=== PATIENT | female | born 1950 | race Caucasian/White ===

== ENCOUNTER → 2019-05-16 | Outpatient (REF) | payer MEDICARE, OTHER | LOC: M LAB LCGH 14:12 | PROVIDERS: ATTEND Family Medicine | DX: Z12.4 Encounter for screening for malignant neoplasm of cervix (principal); N95.2 Postmenopausal atrophic vaginitis | CPT/HCPCS: 87624; G0123 ==

== ENCOUNTER → 2019-07-12 | Outpatient (REF) | LOC: M LAB LCGH 13:57 | PROVIDERS: ATTEND Family Medicine | DX: L82.1 Other seborrheic keratosis (principal) ==

== ENCOUNTER → 2022-09-02 | Outpatient (CLI) | payer MEDICARE, OTHER | LOC: M CARPUL 12:46 | PROVIDERS: ATTEND Nurse Practitioner Adult Health | DX: R91.8 Other nonspecific abnormal finding of lung field (principal) ==

== ENCOUNTER → 2022-11-03 | Outpatient (CLI) | payer MEDICARE, OTHER | LOC: M PLARAD 08:00 | PROVIDERS: ATTEND Nurse Practitioner Adult Health | DX: R91.8 Other nonspecific abnormal finding of lung field (principal) | CPT/HCPCS: 78815; A9552 ==

== ENCOUNTER → 2024-10-10 | Outpatient (CLI) | payer MEDICARE, OTHER | LOC: M RAD 14:12 | PROVIDERS: ATTEND Nurse Practitioner Adult Health | DX: F17.218 Nicotine dependence, cigarettes, with other nicotine-induced disorders (principal) ==